=== PATIENT | female | born 1970 | race Caucasian/White ===

== ENCOUNTER → 2020-12-01 08:27 | Outpatient (CLI) | payer OTHER, SELFPAY ==
--- NOTE | ~2020-12-01 | US_ITS ---
EXAMINATION: US breast BI complete HISTORY: Patient with bilateral silicone implants and resolved right breast pain. Concern for implant rupture. Recent negative mammogram performed at an outside institution in June 2020. TECHNIQUE: Complete bilateral breast ultrasound is performed including both subareolar regions. FINDINGS: No sonographic evidence of implant rupture is present. No suspicious cystic or solid mass i s identified in either breast. IMPRESSION: No sonographic evidence of implant rupture. However, noncontrast MRI of the breasts is more sensitive for silicone implant rupture and recommended if there is high clinical suspicion for rupture. BI-RADS Category 1: Negative Reviewed, dictated and finalized at location A. IMPRESSION: No sonographic evidence of implant rupture. However, noncontrast MRI of the jefe asts is more sensitive for silicone implant rupture and recommended if there is high clinical suspicion for rupture. BI-RADS Category 1: Negative
== END ==
DX: N64.4 Mastodynia (principal); Z98.82 Breast implant status
CPT/HCPCS: 76641